=== PATIENT | male | born 1980 | race Two or more races ===

== ENCOUNTER 2017-09-16 14:16 | Outpatient (CLI) | payer OTHER | END 2017-09-16 14:22 | disposition home or self-care (01) | LOC: RAD 501 14:16 | DX: M25.571 Pain in right ankle and joints of right foot (principal); M25.572 Pain in left ankle and joints of left foot ==

== ENCOUNTER → 2020-01-06 | Emergency (ER) | payer OTHER ==
[~2020-01-06] VITALS: Ht 167.6 cm; Wt 88.5 kg
[~2020-01-06] MED LIST: CARAFATE1 GM PO; LANSOPRAZOLE15 MG PO; MAALOX ADVANCE355 ML PO; PEPCID AC20 MG PO
== END | disposition home or self-care (01) ==
LOC: ER 02:41
DX: K29.00 Acute gastritis without bleeding (principal); R10.31 Right lower quadrant pain